=== PATIENT | male | born 1960 | race Two or more races ===

== ENCOUNTER 2019-11-23 13:02 | Outpatient (CLI) | payer OTHER ==
[2019-12-12] MEDS ORDERED: ZORTRESS0.75 MG PO (13:51)
[2019-12-12] MEDS ORDERED: FAMOTIDINE PO (13:52)
[2019-12-12] MEDS ORDERED: ASPIR 8181 MG PO (13:52)
[2019-12-12] MEDS ORDERED: ALDACTONE50 MG PO (13:53)
[2019-12-12] MEDS ORDERED: HUMULIN 70100 UNIT/2 SUBCUTANEO (15:39)
== END 2019-11-23 14:00 | disposition home or self-care (01) ==
LOC: OFIC 805 13:02
PROVIDERS: ATTEND Otolaryngology
DX: H61.21 Impacted cerumen, right ear (principal); H93.8X2 Other specified disorders of left ear

== ENCOUNTER 2019-12-06 18:13 | Outpatient (CLI) | payer OTHER ==
[2019-12-12] MEDS ORDERED: ZORTRESS0.75 MG PO (13:51)
[2019-12-12] MEDS ORDERED: FAMOTIDINE PO (13:52)
[2019-12-12] MEDS ORDERED: ASPIR 8181 MG PO (13:52)
[2019-12-12] MEDS ORDERED: ALDACTONE50 MG PO (13:53)
[2019-12-12] MEDS ORDERED: HUMULIN 70100 UNIT/2 SUBCUTANEO (15:39)
== END 2019-12-06 19:00 | disposition home or self-care (01) ==
LOC: OFIC 805 18:13
PROVIDERS: ATTEND Otolaryngology
DX: H90.12 Conductive hearing loss, unilateral, left ear, with unrestricted hearing on the contralateral side (principal)

== ENCOUNTER 2019-12-08 12:56 | Outpatient (CLI) | payer OTHER ==
[2019-12-12] MEDS ORDERED: ZORTRESS0.75 MG PO (13:51)
[2019-12-12] MEDS ORDERED: ASPIR 8181 MG PO (13:52)
[2019-12-12] MEDS ORDERED: FAMOTIDINE PO (13:52)
[2019-12-12] MEDS ORDERED: ALDACTONE50 MG PO (13:53)
[2019-12-12] MEDS ORDERED: HUMULIN 70100 UNIT/2 SUBCUTANEO (15:39)
== END 2019-12-08 13:56 | disposition home or self-care (01) ==
LOC: OFIC 805 12:56
PROVIDERS: ATTEND Otolaryngology
DX: H93.8X2 Other specified disorders of left ear (principal); H90.12 Conductive hearing loss, unilateral, left ear, with unrestricted hearing on the contralateral side

== ENCOUNTER 2019-12-19 06:00 | Day surgery (SDC) | payer OTHER ==
[~2019-12-19 06:00] MED LIST: ALDACTONE50 MG PO; ASPIR 8181 MG PO; FAMOTIDINE PO; HUMULIN 70100 UNIT/2 SUBCUTANEO; ZORTRESS0.75 MG PO
[2019-12-19] MEDS ORDERED: CIPRODEX OTIC7.5 ML OT (08:18)
== END 2019-12-19 11:45 | disposition home or self-care (01) ==
LOC: CIR.AMB 06:00
PROVIDERS: ATTEND Otolaryngology
DX: H90.72 Mixed conductive and sensorineural hearing loss, unilateral, left ear, with unrestricted hearing on the contralateral side (principal); H74.12 Adhesive left middle ear disease; Z20.828 Contact with and (suspected) exposure to other viral communicable diseases

== ENCOUNTER 2019-12-27 12:33 | Outpatient (CLI) | payer OTHER ==
[~2019-12-27 12:33] MED LIST changes: +CIPRODEX OTIC7.5 ML OT
== END 2019-12-27 13:00 | disposition home or self-care (01) ==
LOC: OFIC 805 12:33
PROVIDERS: ATTEND Otolaryngology
DX: H74.12 Adhesive left middle ear disease (principal); H93.8X2 Other specified disorders of left ear; Z96.22 Myringotomy tube(s) status